=== PATIENT | male | born 1955 | race Caucasian/White ===

== ENCOUNTER 2016-12-07 06:26 | Day surgery (SDC) ==
[2016-12-07 08:17] LABS: INR 1.17; PROTIME 12.4 Seconds (9.2-11.7); PTT 27.5 Seconds (22.0-36.0)
[2016-12-07 10:17] VITALS: BP 146/83
--- NOTE | 2016-12-07 10:51 | Diag Imaging Result Document ---
PROCEDURE NAME: CHEST-2 VIEWS - 12/07/2016 CHEST X-RAY, TWO VIEWS: COMPARISON: CT from 11/13/2015. FINDINGS: The lungs are clear. The heart size is normal. No pneumothorax or pleural effusion. No complication from the recent large volume left thoracentesis drainage. IMPRESSION: No acute disease.
--- NOTE | 2016-12-07 10:57 | Diag Imaging Result Document ---
PROCEDURE NAME: THORACENTESIS W/IMAGE GUIDANCE - 12/07/2016 ULTRASOUND-GUIDED THORACENTESIS: COMPARISON: None. FINDINGS: Ultrasound scanning demonstrates a rather large left pleural effusion. Overlying skin was prepped and draped in sterile fashion. Anesthesia was achieved with injection of 7 mL of 1% lidocaine. The thoracentesis catheter was advanced without difficulty into the pleural fluid collection. 1.8 liters was withdrawn using evacuated bottles. The catheter was withdrawn intact. The patient reported no symptoms from the procedure. Postprocedural chest x-ray demonstrated no pneumothorax or residual fluid. IMPRESSION: Successful and uncomplicated ultrasound-guided left thoracentesis.
[2016-12-07 11:25] LABS: DIFF NEEDED? YES; WBC BF 749 /cumm
[2016-12-07 11:33] LABS: TOTAL PROT BODY FLUID 4.5 g/dL
[2016-12-07 12:19] LABS: MONOS 98 %; POLYS 2 %
== END 2016-12-07 10:19 | disposition home or self-care (01) ==
LOC: US 06:26
PROVIDERS: ATTEND Internal Medicine
DX: J90 Pleural effusion, not elsewhere classified (principal); Z79.899 Other long term (current) drug therapy; Z79.51 Long term (current) use of inhaled steroids; Z79.82 Long term (current) use of aspirin
CPT/HCPCS: 32555; 71020; 82945; 83615; 84157; 84311; 85610; 85730; 87070; 87205; 89051